=== PATIENT | male | born 1965 | race Caucasian/White ===

== ENCOUNTER 2019-03-01 19:49 | Observation (INO) ==
[2019-03-01] MEDS ORDERED: ASPIRIN PO ONE (19:51)
--- NOTE | 2019-03-01 20:16 | EKG Report ---
Test Performed on : 03/01/2019 7:50:38 PM Test Reason : cp Blood Pressure : / mmHG Vent. Rate : 106 BPM Atrial Rate : 106 BPM P-R Int : 150 ms QRS Dur : 090 ms QT Int : 354 ms P-R-T Axes : 066 040 045 degrees QTc Int : 470 ms Sinus tachycardia. Inferior infarct , age undetermined Abnormal ECG No previous ECGs available Unconfirmed Result
[2019-03-01 20:25] LABS: BASO# 0.04 X1000 (0.0-0.2); BASO% 0.5 % (0.0-0.8); EOS# 0.17 X1000 (0.0-0.7); EOS% 2.3 % (0.0-10.0); HEMOGLOBIN 13.8 g/dL (14.0-18.0); LYMPH# 1.83 X1000 (1.2-3.4); LYMPH% 24.4 % (20.5-51.1); MCH 26.6 PG (27-31); MCHC 32.1 g/dL (33-37); MCV 82.9 FL (81-99); MONO# 0.61 X1000 (0.11-0.59); MONO% 8.1 % (1.7-9.3); MPV 10.1 FL (7.4-10.4); NEUT# 4.85 X1000 (1.4-6.5); NEUT% 64.7 % (42.2-75.2); PLT 197 X1000 (130-400); RBC 5.19 XMIL (4.7-6.1); RDW 13.8 % (11.5-14.5)
[2019-03-01 20:32] LABS: INR 0.98; PROTIME 13.1 Seconds (11.0-16.0)
--- NOTE | 2019-03-01 20:44 | Diag Imaging Result Doc PS360 ---
EXAM: CHEST-2 VIEWS HISTORY: cp TECHNIQUE: Two views COMPARISON: None. FINDINGS: The lungs are well expanded. The heart is not enlarged. The vessels are not distended. There are no infiltrates. No pleural effusions. IMPRESSION: No acute abnormality. Electronically signed by Inderjit Reagan 03/01/2019 8:42 PM
[2019-03-01 20:46] LABS: AGAP 12; ALB/GLOB RATIO 1.6; ALBUMIN 4.6 g/dL (3.5-5.0); ALKALINE PHOSPHATASE 91 U/L (32-122); BUN 13 mg/dL (8-22); CALCIUM 9.5 mg/dL (8.8-10.2); CHLORIDE 100 mmol/L (98-107); CK PROFILE 120 U/L (24-204); COSMO 277; CREATININE 1.1 mg/dL (0.7-1.2); ESTIMATED GFR > 60; GLUCOSE 118 mg/dL (70-104); GOT 17 U/L (10-34); GPT 24 U/L (10-44); POTASSIUM 3.6 mmol/L (3.5-5.1); SODIUM 138 mmol/L (136-145); TCO2 26 mmol/L (25-35); TOTAL BILIRUBIN 0.36 mg/dL (0.20-1.00); TOTAL PROTEIN 7.4 g/dL (6.3-8.3)
--- NOTE | 2019-03-01 22:19 | PROVIDER DOCUMENTATION ---
This chart was entered by Nohemy Elizabeth Scribe, acting as scribe for Kristy Phelps MD. HPI-Chest Pain - General Chief Complaint: Chest Pain Stated Complaint: CHEST PAIN/ASHOULDER /NECK PAIN N/ DIZZY HISTORY Time Seen by Provider: 03/01/19 20:18 Source: patient Allergies/Adverse Reactions: Patient Allergies Allergy/AdvReac Type Severity Reaction Status Date / Time acetaminophen [From [place]] Allergy DIZZINESS Verified 03/01/19 20:08 hydrocodone [From [place]] Allergy DIZZINESS Verified 03/01/19 20:08 Penicillins Allergy RASH Verified 03/01/19 20:08 Home Medications: Home Medication List Medication Instructions Recorded Confirmed Last Taken Type ATORVAstatin [Lipitor] 1 tab PO QHS 03/01/19 03/01/19 02/28/19 History Amlodipine [Norvasc] 1 tab PO DAILY 03/01/19 03/01/19 03/01/19 History Aspirin 81 mg PO QHS 03/01/19 03/01/19 02/28/19 History Clopidogrel Bisulfate [Plavix] 75 mg PO DAILY 03/01/19 03/01/19 03/01/19 History Losartan/Hydrochlorothiazide 1 tab PO DAILY 03/01/19 03/01/19 03/01/19 History [Losartan-Hctz 100-12.5 mg Tab] Metoprolol [Lopressor] 25 mg PO QHS 03/01/19 03/01/19 02/28/19 History Pantoprazole [Protonix] 40 mg PO DAILY 03/01/19 03/01/19 02/28/19 History - History of Present Illness-CP Nature of Presenting Problem: pt is a 53 yr old male presenting with complaint of chest pain, dizziness and diaphoresis. pt reports onset just after eating supper tonight. pt reports symptoms have since resolved, lasted approx 1 hour. pt admits hx of [place], stents placed 11/01/18. pt denies any complaint at this time. pt also reports 3 recent episodes of similar x 4 days. His states that when they did the cardiac cath they noticed other small blockages but only concentrated on the big blockage. He was on brilinta but was having SOB with it so his Dr 1 month ago changed him to plavix. He has not been having any additional SOB associated with it and he did not stop any form of anticoagulation. Location: reports: substernal, central Chest Pain Radiation: reports: shoulders (left) Quality of Pain: reports: none Onset/Duration: this evening Timing: resolved prior to arrival Context/Activities at Onset: reports: eating Modifying Factors: improves with: nothing Associated Symptoms: reports: diaphoresis, shortness of breath, weakness Nitro Today/Relief: no nitro taken today Aspirin Treatment Today: no aspirin today Prior Chest Pain/Cardiac Workup: reports: heart attack, other (stents) Similar Symptoms Previously?: No Recently Seen Here or By Another Healthcare Provider: No Review of Systems - Adult - REVIEW OF SYSTEMS - ADULT Constitutional: denies: fever, fatique Eyes: reports: no symptoms reported Ears, Nose, Mouth & Throat: denies: ear pain, sinus problem, throat pain Cardiovascular: reports: chest pain. denies: palpitations, syncope Respiratory: denies: shortness of breath Gastrointestinal: denies: nausea Genitourinary: reports: no symptoms reported Musculoskeletal: denies: back pain, neck pain Integumentary: reports: no symptoms reported Neurological: reports: dizziness/vertigo Psychiatric: reports: no symptoms reported Endocrine: reports: no symptoms reported Hematologic/Lymphatic: reports: no symptoms reported Allergic/Immunologic: reports: no symptoms reported All Other Systems: Reviewed and Negative Past History - Adult - PAST MEDICAL HISTORY-ADULT Review of Records: reports: Old Records Reviewed, Nursing Assessment Review, Medications Reviewed, Social history reviewed & non-contributory. Major Childhood Illnesses: reports: denies history Cardiovascular: reports: denies history Respiratory: reports: denies history Gastrointestinal: reports: denies history Obstetrical/Gynecological: reports: denies history Genitourinary: reports: denies history Musculoskeletal: reports: denies history Neurological: reports: denies history Endocrine/Immune: reports: denies history Other Conditions: reports: denies history - IMMUNIZATION STATUS Childhood Immunizations: See Nurse Assessment Flu Vaccine: See Nurse Assessment - FAMILY HISTORY Family History: reviewed, not pertinent - SOCIAL HISTORY Living Situation: family Physical Exam-General - PHYSICAL EXAM-ADULT Initial Vital Signs Reviewed: Yes - CONSTITUTIONAL General Appearance: appears well, alert, no apparent distress, obese - EYES Eyes: PERRL/EOMI - HEAD, EARS, NOSE, MOUTH & THROAT HENMT: normocephalic/atraumatic, moist mucous membranes - NECK Neck: non-tender, full range of motion, supple, normal inspection - RESPIRATORY Respiratory: chest non-tender, lungs clear, normal breath sounds, no respiratory distress, no accessory muscle use - CARDIOVASCULAR Cardiovascular: normal peripheral pulses, no edema, tachycardia - GASTROINTESTINAL (ABDOMEN) Abdominal Exam: normal bowel sounds, non tender, soft - MUSCULOSKELETAL Back Exam: normal inspection, no vertebral tenderness Extremity: normal range of motion, non-tender, normal gait, normal inspection, no pedal edema - SKIN Integumentary: normal color, normal turgor, warm/dry - NEUROLOGIC Neurologic: grossly normal, no motor/sensory deficits - PSYCHIATRIC Psych/Mental Status: normal mood/affect, oriented x 3 - HEART Score HEART Score: History: Highly Suspicious HEART Score: ECG: Non-Specific Repolarization Disturbance/LBBB/PM HEART Score: Age: 45-65 Years HEART Score: Risk Factors for Atherosclerotic Disease: > or = 3 Risk Factors or History of Atherosclerotic Disease HEART Score: Troponin: < or = Normal Limit Total HEART Score:: 6 Progress - PLAN OF CARE/RESULTS Progress/Plan/Lab Results: Vital Signs - 8 hr 03/01/19 19:52 Temperature 98.5 F Pulse Rate 111 H Respiratory Rate 18 Blood Pressure 182/94 O2 Sat by Pulse Oximetry 96 Laboratory Results - last 24 hr 03/01/19 03/01/19 03/01/19 20:13 20:13 20:13 WBC 7.50 RBC 5.19 Hgb 13.8 L Hct 43.0 MCV 82.9 MCH 26.6 L MCHC 32.1 L RDW Std Deviation 13.8 Plt Count 197 MPV 10.1 Immature Gran % (Auto) 0.0 Neut % (Auto) 64.7 Lymph % (Auto) 24.4 [place] % (Auto) 8.1 Eos % (Auto) 2.3 Baso % (Auto) 0.5 Immature Gran # (Auto) 0.00 Neut # (Auto) 4.85 Lymph # (Auto) 1.83 [place] # (Auto) 0.61 H Eos # (Auto) 0.17 Baso # (Auto) 0.04 PT INR PTT (Actin FS) Sodium 138 Potassium 3.6 Chloride 100 Carbon Dioxide 26 Anion Gap 12 BUN 13 Creatinine 1.1 Estimated GFR/1.73 m2 > 60 BUN/Creatinine Ratio 12 Glucose 118 H Calculated Osmolality 277 Calcium 9.5 Total Bilirubin 0.36 AST 17 ALT 24 Alkaline Phosphatase 91 Creatine Kinase 120 Troponin T Qxc-Q-Gafwntwgawc Pept 17 Total Protein 7.4 Albumin 4.6 Globulin 2.8 Albumin/Globulin Ratio 1.6 03/01/19 03/01/19 20:13 20:13 WBC RBC Hgb Hct MCV MCH MCHC RDW Std Deviation Plt Count MPV Immature Gran % (Auto) Neut % (Auto) Lymph % (Auto) [place] % (Auto) Eos % (Auto) Baso % (Auto) Immature Gran # (Auto) Neut # (Auto) Lymph # (Auto) [place] # (Auto) Eos # (Auto) Baso # (Auto) PT 13.1 INR 0.98 PTT (Actin FS) 33.0 Sodium Potassium Chloride Carbon Dioxide Anion Gap BUN Creatinine Estimated GFR/1.73 m2 BUN/Creatinine Ratio Glucose Calculated Osmolality Calcium Total Bilirubin AST ALT Alkaline Phosphatase Creatine Kinase Troponin T < 0.010 Iul-V-Iengckbhgzo Pept Total Protein Albumin Globulin Albumin/Globulin Ratio Orders Category Date Time Status Admit - [facility] Routine AdmDCTranf 03/01/19 23:44 Active Cardiac Monitoring DIRECTED Care 03/01/19 19:51 Completed Notify MD if DIRECTED Care 03/01/19 23:44 Active Nursing- MD Consult Request ROUTINE Care 03/01/19 23:44 Active Oxygen Therapy- ED Nursing DIRECTED Care 03/01/19 19:51 Completed Saline Loc DIRECTED Care 03/01/19 23:44 Active Saline Loc NOW Care 03/01/19 19:51 Active Vital Signs Order Q 4-HR ASSESS Care 03/01/19 23:44 Active Z-Document. for Tele Applied ORDERED Care 03/01/19 23:44 Active Physician/Provider Consults Routine Cons 03/01/19 23:44 Ordered NPO Diet 03/02/19 00:01 Active CHEST-2 VIEWS [RAD] Stat Exams 03/01/19 19:51 Completed BASIC METABOLIC PANEL [CHEM] Routine Lab 03/01/19 23:44 Ordered CBC WITH ELECTRONIC DIFF [HEME] Routine Lab 03/02/19 06:00 Ordered CBC WITH ELECTRONIC DIFF [HEME] Stat Lab 03/01/19 20:13 Completed CK PROFILE [SP CHEM] Q8H Lab 03/01/19 23:44 Ordered CK PROFILE [SP CHEM] Q8H Lab 03/02/19 07:44 Ordered CK PROFILE [SP CHEM] Q8H Lab 03/02/19 15:44 Ordered CK PROFILE [SP CHEM] Stat Lab 03/01/19 20:13 Completed COMPREHENSIVE METABOLIC PANEL [CHEM] Stat Lab 03/01/19 20:13 Completed LIPID PROFILE W/CALC LDL [LIPIDS] Routine Lab 03/02/19 06:00 Ordered PRO B-NATRIURETIC PEPTIDE Stat Lab 03/01/19 20:13 Completed PROTIME WITH INR [COAG] Stat Lab 03/01/19 20:13 Completed PTT [COAG] Stat Lab 03/01/19 20:13 Completed TROPONIN T Q8H Lab 03/01/19 23:44 Ordered TROPONIN T Q8H Lab 03/02/19 07:44 Ordered TROPONIN T Q8H Lab 03/02/19 15:44 Ordered TROPONIN T Stat Lab 03/01/19 20:13 Completed ATORVAstatin [Lipitor] Med 03/02/19 21:00 Active 40 mg PO QHS Amlodipine [Norvasc] Med 03/02/19 09:00 Active 5 mg PO DAILY Aspirin Med 03/02/19 09:00 Active 325 mg PO DAILY Aspirin Med 03/01/19 19:51 Discontinued 325 mg PO NOW ONE Clopidogrel [Plavix] Med 03/02/19 09:00 Active 75 mg PO DAILY Enoxaparin [Lovenox] Med 03/01/19 23:44 Active 40 mg SUBQ Q24H Losartan/Hctz [Hyzaar 100/12.5 mg Tab] Med 03/02/19 09:00 Active 1 each PO DAILY Metoprolol [Lopressor] Med 03/02/19 21:00 Active 25 mg PO QHS Nitroglycerin Sl [Nitroglycerin] Med 03/01/19 23:44 Active 0.4 mg SL Q5M PRN PRN Omeprazole [Prilosec] Med 03/02/19 07:00 Active 20 mg PO DAILY@0700 Ondansetron [Zofran] Med 03/01/19 23:44 Active 4 mg IV Q4H PRN PRN Oxygen Device Routine Oth 03/01/19 23:44 Active Telemetry [OM.EQ] Routine Oth 03/01/19 23:44 Active EKG [EKG] Stat Ther 03/01/19 19:51 Draft Transfer/Admit Order [TRANSFER] Routine Transfer 03/01/19 22:04 Completed Patient with previous heart history and recent stent placement. His story if concerning given that it is intermittent over the past few days. His troponin is normal and his EKG is unchanged. His HEART score is 5 for story and history. Spoke to patient about admission and he is ok with admission. SPoke to Dr Acharya, hospitalist local combination truck driver who accepted patient for admission. Further orders to be placed by their team. Result Diagrams: 03/01/19 20:13 03/01/19 20:13 - EKG 1 Time of EKG reading by physician:: 19:50 EKG Read and Signed by:: Kristy Phelps EKG Interpretation (*Must complete 3 of following elements*): Abnormal (inferior infarct-age undetermined) Rate: 106 Rhythm: sinus tach [place]: normal QRS: normal ME Interval: normal ST Wave: normal - CONSULTS/PCP/HOSPITALIST Notification #1 *Consult/PCP/Hospitalist*: Dr Acharya Time Discussed: 21:20 Reason/Comments: discussed plan of care for pt admit Consult Disposition: Admit Departure - Departure Date of Disposition Decision: 03/01/19 Time of Disposition Decision: 21:20 DIAGNOSIS: Chest pain Disposition: ADMITTED INPATIENT 09 Certified Medical Emergency: Emergent Condition: Stable - Critical Care Note This patient required my direct & personal management of CC.: No Attestation - Physician/ KANDY Attestation Patient care was provided by Advanced Practice Provider:: No The physician spent face to face time with patient:: Yes Advanced Practice Provider documentation review:: Supervising physician onsite and consulted in the evaluation and care of this patient. The physician did have a face to face encounter with the patient. This chart was documented by the indicated scribe, (Nohemy Elizabeth Scribe) and accurately reflects the services I performed and decisions made by me, Kristy Phelps MD, as attested by the provider's signature.
--- NOTE | 2019-03-01 22:28 | HISTORY AND PHYSICAL ---
PRIMARY CARE PHYSICIAN: Dr. Evangelista Pearce. CHIEF COMPLAINT: Chest pain. HISTORY OF PRESENTING ILLNESS: This is a 53-year-old male with a history of coronary artery disease, [place], hyperlipidemia, hypertension, who had presented to the emergency department with 1- week history of having intermittent chest tightness. The patient states that he was nauseated and dizzy at times. He was also short of breath. He was evaluated in the emergency department, and due to his presenting symptoms, it was thought that he would need admission for further management. The patient, apparently, had seen his consultant intern earlier in the week and was complaining shortness of breath at that time. His consultant intern stated that possibly he may need a heart catheterization. At the time of my examination, patient denied any headache, fever, chills, nausea, hemoptysis, melena or weight changes, but complained of nausea and chest tightness. PAST MEDICAL HISTORY: Includes coronary artery disease, [place], hyperlipidemia, hypertension. PAST SURGICAL HISTORY: Coronary stent, right hand surgery. ALLERGIES: Acetaminophen, hydrocodone, penicillin. CURRENT MEDICATIONS: Norvasc 5 mg, 1 p.o. daily, aspirin 81 mg p.o. daily, atorvastatin 40 mg p.o. at bedtime, Plavix 75 mg p.o. daily, losartan HCT 100/12.5, one p.o. daily, metoprolol 25 mg p.o. at bedtime, Protonix 40 mg p.o. daily. SOCIAL HISTORY: He is a former smoker. Denies any history of alcohol or illicit drug use. FAMILY HISTORY: Positive for coronary disease in his Father. REVIEW OF SYSTEMS: Fourteen-point review of systems is as in HPI. Other systems negative. PHYSICAL EXAMINATION: GENERAL: Cooperative, friendly male. He is resting comfortably now. VITAL SIGNS: Temperature 98.5 degrees, pulse 111, respiration 18, blood pressure 182/94. HEENT: Atraumatic, normocephalic. Extraocular movements intact. PERRLA. NECK: Supple. CHEST: Clear to auscultation. CARDIOVASCULAR: Regular rate and rhythm. ABDOMEN: Soft, positive bowel sounds. EXTREMITIES: No edema. NEUROLOGIC: He is awake, alert, oriented x3. GENITOURINARY: No bladder distention. SKIN: Warm. LABORATORIES AND STUDIES: WBC 7.50, hemoglobin 13.8, hematocrit 43.0, platelets 197,000. Sodium 138, potassium 3.6, chloride 100, CO2 of 26, BUN is 13, creatinine is 1.1. Glucose is 118. Troponin 0.010. Chest x-ray is negative. EKG shows sinus tachycardia. ASSESSMENT: This is a 53-year-old male with a history of coronary artery disease, myocardial infarction, hyperlipidemia, hypertension, who had presented to the emergency department with 1- week history of having intermittent chest tightness. He was evaluated in the emergency department, due to his presenting symptoms, we will place him for observation for further evaluation and management. 1. Chest pain. 2. Coronary artery disease. 3. Hypertension. 4. Hyperlipidemia. PLAN: 1. We will admit patient to medical floor with telemetry. 2. We will continue with cardiac workup. Check EKG, serial cardiac enzymes. Have patient continue on aspirin. Will use sublingual nitroglycerin p.r.n. chest pain. 3. We will consult Cardiology. 4. Monitor blood pressure. Resume antihypertensive agent. 5. We will restart statins and other home medications. 6. Put patient on DVT prophylaxis with Lovenox. 7. We will continue to follow and reassess. Make further recommendation based on patient's clinical course. cc: Enrique Acharya MD
[2019-03-01] MEDS ORDERED: NITROGLYCERIN SL PRN (23:44)
[2019-03-01] MEDS ORDERED: ZOFRAN IV PRN (23:44)
[2019-03-01] MEDS ORDERED: LOVENOX SUBQ SCH (23:44)
[2019-03-02] MEDS ORDERED: FLU VACCINE IM ONE (00:55)
[2019-03-02 00:56] LABS: AGAP 15; BUN 18 mg/dL (8-22); CALCIUM 8.5 mg/dL (8.8-10.2); CHLORIDE 100 mmol/L (98-107); CK PROFILE 117 U/L (24-204); COSMO 285; CREATININE 1.1 mg/dL (0.7-1.2); ESTIMATED GFR > 60; GLUCOSE 138 mg/dL (70-104); POTASSIUM 3.4 mmol/L (3.5-5.1); SODIUM 141 mmol/L (136-145); TCO2 26 mmol/L (25-35)
[2019-03-02] MEDS ORDERED: PRILOSEC PO SCH (07:00)
[2019-03-02 07:28] LABS: BASO# 0.04 X1000 (0.0-0.2); BASO% 0.7 % (0.0-0.8); EOS# 0.13 X1000 (0.0-0.7); EOS% 2.3 % (0.0-10.0); HEMATOCRIT 41.9 % (42.0-52.0); HEMOGLOBIN 13.3 g/dL (14.0-18.0); LYMPH# 1.74 X1000 (1.2-3.4); LYMPH% 30.9 % (20.5-51.1); MCH 26.4 PG (27-31); MCHC 31.7 g/dL (33-37); MCV 83.3 FL (81-99); MONO# 0.48 X1000 (0.11-0.59); MONO% 8.5 % (1.7-9.3); MPV 10.2 FL (7.4-10.4); NEUT# 3.25 X1000 (1.4-6.5); NEUT% 57.6 % (42.2-75.2); PLT 188 X1000 (130-400); RBC 5.03 XMIL (4.7-6.1); RDW 13.9 % (11.5-14.5); WBC 5.64 X1000 (4.8-10.8)
[2019-03-02 07:41] LABS: CHOLESTEROL 118 mg/dL (0-200); HDL 32 mg/dL (35-55); LDL 60 mg/dL; TRIGLYCERIDES 131 mg/dL (39-160); VLDL 26 mg/dL
[2019-03-02 07:55] VITALS: BP 139/90
[2019-03-02] MEDS ORDERED: HYZAAR 100/12.5 MG TAB PO SCH (09:00)
[2019-03-02] MEDS ORDERED: ASPIRIN PO SCH (09:00)
[2019-03-02] MEDS ORDERED: PLAVIX PO SCH (09:00)
[2019-03-02] MEDS ORDERED: PROTONIX PO SCH (09:00)
[2019-03-02] MEDS ORDERED: NORVASC PO SCH (09:00)
--- NOTE | 2019-03-02 11:18 | CONSULTATION ---
DATE OF CONSULTATION: 03/02/2019 IMPRESSION: 1. Unstable angina. 2. Atherosclerotic coronary disease. Patient is status post angioplasty and stenting of very severe stenosis in obtuse marginal in October of this year. He also had significant stenosis in proximal right coronary artery. 3. Hyperlipidemia. 4. Hypertension. RECOMMENDATIONS: Given clinical presentation with recurrent and unstable angina, further evaluation with coronary angiography needed. He is known to have significant stenosis in the right coronary artery and, as such, would probably benefit from going on to [facility] for further evaluation with cardiac catheterization and probable coronary angioplasty/stenting. The rationale for this approach was discussed with the patient including potential risk for invasive evaluation. He very much wished to proceed. Arrangements have been made for patient to be transferred to [facility] today for invasive cardiac evaluation today. HISTORY: This 53-year-old white male with past history of atherosclerotic coronary disease, hyperlipidemia, hypertension, and obesity was admitted late last night for evaluation of recurrent chest discomfort. He relates a several-day history of intermittent chest tightness. A rather protracted episode yesterday prompted him to come on in for evaluation. He has some associated shortness of breath. Symptoms are very much like what he had prior to his coronary angioplasty/stent procedure back in October of this year. His chest symptoms have resolved and serial enzymes have been negative. PAST MEDICAL HISTORY: 1. Atherosclerotic coronary disease. 2. Hyperlipidemia. 3. Hypertension. 4. Obesity. 5. Obstructive sleep apnea. PAST SURGICAL HISTORY: Unspecified right hand surgery. ALLERGIES: He is allergic or intolerant to acetaminophen, hydrocodone and penicillin. MEDICATIONS PRIOR TO ADMISSION: As listed. SOCIAL HISTORY: He is and works at [employer] in [facility]. He has history of previous smoking in the past but no longer smokes cigarettes. He does not use alcohol. FAMILY HISTORY: Positive for coronary disease. REVIEW OF SYSTEMS: Pulmonary: Noncontributory beyond history present illness. Gastrointestinal: Noncontributory beyond history of present illness. Constitutional: Noncontributory beyond history of present illness. Remainder of review of systems negative/noncontributory beyond history of present illness with 14 total systems reviewed. PHYSICAL EXAMINATION: General: Obese, middle-aged male in no distress on room air. Vital Signs: Blood pressure 139/90, heart rate 91, oxygen saturation 97% on room air. HEENT: Extraocular movements intact. Mucous membranes moist. Neck: Supple without jugular venous distention. No carotid bruits. Chest: Clear to auscultation bilaterally. Cardiac Exam: Reveals a regular rate and rhythm without appreciable murmur or gallop. Abdomen: Soft. Bowel sounds are normal. Extremities: Without edema. Neurologic: Reveals him to be alert and fully oriented. Speech is fluent. Moves all 4 extremities equally well. Skin: Warm and dry. Psychiatric: Reveals mood to be appropriate. PERTINENT DATA: A 12-lead EKG demonstrates sinus rhythm and inferior infarct of undetermined age, probably old. There are no acute ST or T-wave changes. LABORATORY DATA: Sodium 138, potassium 3.6, chloride 100, carbon dioxide 26, BUN 13, creatinine 1.1, glucose 118. AST 17, ALT 24, alkaline phosphatase 91, CPK 120. Followup CPK 110. Initial troponin T less than 0.01. Followup troponin T less than 0.01 and less than 0.01. Total protein 7.4, albumin 4.6, globulin 2.8, triglycerides 131, total cholesterol 118, LDL cholesterol 60, HDL cholesterol 32. cc: Nacho Ann MD
[2019-03-02] MEDS ORDERED: LOPRESSOR PO SCH (21:00)
[2019-03-02] MEDS ORDERED: LIPITOR PO SCH (21:00)
--- NOTE | 2019-03-03 06:01 | DISCHARGE SUMMARY ---
ADMISSION DATE: 03/01/2019 DISCHARGE DATE: 03/02/2019 DISCHARGE DISPOSITION: He is being transferred to [facility] for cardiac catheterization and coronary angiography for suspected ischemic coronary artery disease. DISCHARGE CONDITION: He appears to be hemodynamically stable. He is not having any chest pain at the moment. DISCHARGE DIAGNOSES: 1. Anginal chest pain, likely unstable angina. 2. Recent history of coronary artery disease requiring percutaneous intervention and stent of obtuse marginal artery in October of 2018 with significant stenosis in proximal right coronary artery. 3. Essential hypertension. 4. Hyperlipidemia. 5. Obesity. 6. Chronic gastroesophageal reflux disease. 7. Hyperlipidemia. DISCHARGE MEDICATIONS: 1. Aspirin 81 mg at nighttime. 2. Atorvastatin 40 mg at nighttime. 3. Metoprolol 25 mg at nighttime. 4. Losartan/hydrochlorothiazide 112.5 mg tab daily. 5. Amlodipine 5 mg daily. 6. Clopidogrel 75 mg daily. 7. Pantoprazole 40 mg daily. 8. Enoxaparin 40 mg subcutaneous every 24 hours for DVT prophylaxis. VITALS: At the time of discharge, temperature 98.3, pulse 91, respiratory 21, blood pressure 139/90, and saturating 97% on room air. PHYSICAL EXAMINATION: He does not appear to be in any acute distress. Oral cavity is moist. Lungs: Air entry bilaterally equal. No wheeze, rhonchi, or crackles. Cardiovascular: S1, S2 normal. No murmur, rub, or gallop. Abdomen: Obese, soft, and nontender. He has dullness to percussion in bilateral flanks with some shifting dullness. No lower extremity edema. He has markedly obese abdomen. No chest wall tenderness. Neurologic: He is alert and oriented x3. SIGNIFICANT LABS DURING HOSPITAL ADMISSION AND DISCHARGE: WBC 5.6, hemoglobin 13.3, and platelets 188,000. INR 0.9. Potassium of 3.6, BUN 13, creatinine 1.1, and glucose 118. Troponins were negative x3. IMAGING: During hospital admission, chest x-ray did not have any acute pathology. Electrocardiogram had sinus tachycardia, inferior infarct age undetermined. HOSPITAL COURSE SUMMARY: Mr. Hunt is a 53 year old man with past medical history of coronary artery disease requiring stent in October of 2018 who has been experiencing intermittent chest tightness associated with shortness of breath and diaphoresis since about 1 weeks duration. Apparently, he had seen his mechanical systems design engineer 1 week prior to this, and at that time his Brilinta was changed to clopidogrel. However, his chest discomfort and shortness of breath did not subside so he decided to come to the emergency room. In the emergency room, he was initially found to be tachycardic with heart rate of 111, as well as hypertensive with blood pressure of 180/90. He was admitted for further management and cardiology team was consulted. His troponins were negative. However, his chest pain was typical anginal. [facility] was consulted, and it was decided to transfer him for cardiac catheterization and possible stenting as needed. I discussed plan of care with the patient and his at bedside. Their questions were answered. TIME SPENT: More than 30 minutes spent in discharging this patient. cc: Darrell Willett MD
== END 2019-03-02 12:31 | disposition short-term general hospital (02) ==
LOC: ED 19:49 → 3N 19:49 → SUATTDRO 22:58
PROVIDERS: ATTEND Internal Medicine